=== PATIENT | male | born 1935 | race Caucasian/White ===

== ENCOUNTER 2018-01-27 04:10 | Inpatient (IN) | payer MEDICARE ==
[~2018-01-27] VITALS: Ht 162.6 cm; Wt 65.8 kg
--- NOTE | 2018-01-27 04:27 | Emergency Room Report ---
History of Present Illness General Chief Complaint: Dyspnea/Respdistress Source: EMS Present Illness HPI Is an 82-year-old male brought in by EMS with chief point short of breath. He has multiple problems including lymphoma in remission. He has high blood pressure, diabetes, COPD/CHF. He presents with 1 day history of increasing short of breath and woke up about an hour ago so he can't breathe. He has his to call 911. Per EMS he was very tight and wheezing. He was tripoding. They gave him 25 mg albuterol treatment on route. He felt better now. No fever or chills. Increasing cough. Cough is nonproductive in nature. He is wheezing. Allergies: Coded Allergies: DIPHENHYDRAMINE (Verified Allergy, Unknown, 01/27/18) Patient History Past Medical History: see triage record, old chart reviewed, HTN, [place], CAD, asthma, COPD Past Surgical History: other Pertinent Family History: none Social History: Denies: smoking Immunizations: other Reviewed Nursing Documentation: PMH: Agreed; PSxH: Agreed Nursing Documentation-PMH Hx Hypertension: Yes Hx COPD: Yes - EMPHYSEMA Hx Cancer: Yes - LUNG Review of Systems Eye: Denies: eye pain, blurred vision ENT: Denies: ear pain, nose congestion, throat swelling Respiratory: Reports: cough, shortness of breath, wheezing Cardiovascular: Denies: chest pain, palpitations Gastrointestinal: Denies: abdominal pain, diarrhea, nausea, vomiting Musculoskeletal: Denies: back pain, joint pain Skin: Denies: rash Neurological: Denies: headache, numbness Endocrine: Denies: increased thirst, increased urine Hematologic/Lymphatic: Denies: easy bruising All Other Systems: negative except mentioned in HPI Physical Exam Vital Signs Date Time Temp Pulse Resp B/P (MAP) Pulse Ox O2 Delivery O2 Flow Rate FiO2 01/27/18 04:17 96.9 58 27 185/72 94 Room Air 97.0 vitals with high blood pressure Sp02 EP Interpretation: reviewed, normal General Appearance: well appearing, alert, moderate distress, Chronically Ill Head: normocephalic, atraumatic Eyes: bilateral eye PERRL, bilateral eye EOMI ENT: hearing grossly normal, normal pharynx Neck: full range of motion, supple, no meningismus Respiratory: chest non-tender, respiratory distress, decreased breath sounds, accessory muscle use, wheezing Cardiovascular #1: regular rate, rhythm, no murmur Gastrointestinal: normal bowel sounds, non tender, no mass, no organomegaly, no bruit, non-distended Musculoskeletal: back normal, normal range of motion Neurologic: alert, oriented x3 Psychiatric: mood/affect normal Skin: warm/dry Medical Decision Making Diagnostic Impression: Primary Impression: COPD with exacerbation Additional Impression: Hypertension Qualified Codes: I10 - Essential (primary) hypertension ER Course Patient presents with respiratory distress secondary to COPD exacerbation. After several rounds of treatment and steroid, he is feeling better. No evidence of ACS, PE, dissection to name a few. No evidence of pneumonia. Patient is stable for transfer. Family consistent on being transfer to [facility]. Unfortunately there is no beds at [facility]. They have 40 pts waiting for beds in Telemetry. I discussed case with Dr. Arlen Schmid who is covering for Dr. Elizondo. Pt will be admitted here under Dr. Poole. Laboratory Tests Test 01/27/18 04:50 White Blood Count 10.2 K/UL (4.8-10.8) Red Blood Count 5.53 M/UL (4.70-6.10) Hemoglobin 14.8 G/DL (14.2-18.0) Hematocrit 46.2 % (42.0-52.0) Mean Corpuscular Volume 84 FL (80-99) Mean Corpuscular Hemoglobin 26.8 PG (27.0-31.0) L Mean Corpuscular Hemoglobin Concent 32.1 G/DL (32.0-36.0) Red Cell Distribution Width 14.7 % (11.6-14.8) Platelet Count 137 K/UL (150-450) L Mean Platelet Volume 12.7 FL (6.5-10.1) H Neutrophils (%) (Auto) 75.0 % (45.0-75.0) Lymphocytes (%) (Auto) 15.6 % (20.0-45.0) L Monocytes (%) (Auto) 7.7 % (1.0-10.0) Eosinophils (%) (Auto) 1.0 % (0.0-3.0) Basophils (%) (Auto) 0.8 % (0.0-2.0) Sodium Level 141 MMOL/L (136-145) Potassium Level 5.4 MMOL/L (3.5-5.1) H Chloride Level 108 MMOL/L (98-107) H Carbon Dioxide Level 26 MMOL/L (21-32) Anion Gap 7 mmol/L (5-15) Blood Urea Nitrogen 13 mg/dL (7-18) Creatinine 0.9 MG/DL (0.55-1.30) Estimat Glomerular Filtration Rate mL/min (>60) Glucose Level 106 MG/DL (74-106) Calcium Level 8.5 MG/DL (8.5-10.1) Total Bilirubin 1.0 MG/DL (0.2-1.0) Aspartate Amino Transf (AST/SGOT) 45 U/L (15-37) H Alanine Aminotransferase (ALT/SGPT) 24 U/L (12-78) Alkaline Phosphatase 51 U/L (46-116) Total Creatine Kinase 120 U/L (26-308) Creatine Kinase MB 0.8 NG/ML (0.0-3.6) Creatine Kinase MB Relative Index 0.6 Troponin I 0.000 ng/mL (0.000-0.056) Pro-B-Type Natriuretic Peptide 221 pg/mL (0-125) H Total Protein 7.0 G/DL (6.4-8.2) Albumin 3.2 G/DL (3.4-5.0) L Globulin 3.8 g/dL Albumin/Globulin Ratio 0.8 (1.0-2.7) L Lab Results Impression labs unremarkable EKG Diagnostic Results Rate: normal Rhythm: NSR ST Segments: no acute changes Rhythm Strip Diag. Results Rhythm Strip Time: 06:23 EP Interpretation: yes Rate: 60 Rhythm: NSR, no PVC's, no ectopy Chest X-Ray Diagnostic Results Chest X-Ray Diagnostic Results : Chest X-Ray Ordered: Yes # of Views/Limited/Complete: 1 View Indication: Shortness of Breath EP Interpretation: Yes Interpretation: no consolidation, no effusion, no pneumothorax, no acute cardiopulmonary disease Impression: No acute disease Electronically Signed by: Sarbjit Maher MD Last Vital Signs Date Time Temp Pulse Resp B/P (MAP) Pulse Ox O2 Delivery O2 Flow Rate FiO2 01/27/18 04:17 96.9 58 27 185/72 94 Room Air 97.0 Status: improved Disposition: ADMITTED INPATIENT Condition: Serious SARBJIT MAHER M.D. Jan 27, 2018 04:27
[2018-01-27] MEDS ORDERED: Albuterol ud Inhalation HHN ONE (04:30)
[2018-01-27] MEDS ORDERED: Solu-MEDROL 125mg Inj IVP ONE (04:30)
[2018-01-27] MEDS ORDERED: Ipratropium 0.02% Inh Soln 2.5ml UD HHN ONE (04:30)
[2018-01-27 04:55] LABS: BASOPHILS % (AUTO) 0.8 % (0.0-2.0); HEMATOCRIT 46.2 % (42.0-52.0); HEMOGLOBIN 14.8 G/DL (14.2-18.0); LYMPHOCYTES % (AUTO) 15.6 % (20.0-45.0); MEAN CORPUSCULAR VOLUME 84 FL (80-99); MONOCYTES % (AUTO) 7.7 % (1.0-10.0); PLATELET COUNT 137 K/UL (150-450); RED BLOOD COUNT 5.53 M/UL (4.70-6.10); RED CELL DISTRIBUTION WIDTH 14.7 % (11.6-14.8); WHITE BLOOD COUNT 10.2 K/UL (4.8-10.8)
[2018-01-27 05:22] LABS: ANION GAP 7 mmol/L (5-15); BLOOD UREA NITROGEN 13 mg/dL (7-18); CALCIUM 8.5 MG/DL (8.5-10.1); CARBON DIOXIDE 26 MMOL/L (21-32); CHLORIDE 108 MMOL/L (98-107); CREATININE 0.9 MG/DL (0.55-1.30); SODIUM 141 MMOL/L (136-145)
[2018-01-27 05:34] LABS: ALANINE AMINOTRANSFERASE 24 U/L (12-78); ALBUMIN 3.2 G/DL (3.4-5.0); ALBUMIN/GLOBULIN RATIO 0.8 (1.0-2.7); ALKALINE PHOSPHATASE 51 U/L (46-116); ASPARTATE AMINO TRANSFERASE 45 U/L (15-37); CKMB 0.8 NG/ML (0.0-3.6); CREATINE KINASE 120 U/L (26-308)
[2018-01-27 07:15] VITALS: BP 120/42
[2018-01-27 08:10] VITALS: BP 120/56
[2018-01-27] MEDS ORDERED: unknown meds (09:13)
[2018-01-27] MEDS ORDERED: Solu-MEDROL 40mg Inj IVP SCH (11:00)
[2018-01-27 12:00] VITALS: BP 131/66
[2018-01-27] MEDS: Albuterol/Ipratropium 3ml neb HHN SCH ×4 (12:13→22:56)
--- NOTE | 2018-01-27 14:38 | Diagnostic Imaging Report ---
Indication: Shortness of breath Technique: One view of the chest Comparison: 09/02/2005 Findings: The heart is borderline enlarged. There is mild chronic appearing interstitial prominence, likely on the basis of senescent change, and central bronchial wall thickening. No focal airspace consolidation. Pleural spaces are clear Impression: Mild interstitial prominence, suspect chronic on the basis of senescent changes Borderline cardiomegaly No definite acute process
[2018-01-27 16:00] VITALS: BP 134/87
--- NOTE | 2018-01-27 16:24 | History & Physical ---
History and Physical History & Physicial H & P dict Chandra Poole MD Jan 27, 2018 16:24
[2018-01-27] MEDS ORDERED: TAMSULOSIN HCL0.4 MG ORAL (16:50)
[2018-01-27] MEDS ORDERED: PRAVACHOL40 MG ORAL (16:50)
[2018-01-27] MEDS ORDERED: ZANTAC150 MG ORAL (16:50)
[2018-01-27] MEDS ORDERED: COREG25 MG ORAL (16:50)
[2018-01-27] MEDS ORDERED: HYDRALAZINE HCL50 MG ORAL (16:50)
[2018-01-27] MEDS ORDERED: PLAVIX75 MG ORAL (16:50)
[2018-01-27] MEDS ORDERED: PROTONIX40 MG ORAL (16:50)
[2018-01-27] MEDS ORDERED: ADVAIR 250-501 EACH INH (16:50)
[2018-01-27] MEDS ORDERED: IMBRUVICA140 MG PO (16:50)
[2018-01-27] MEDS ORDERED: LINZESS145 MCG PO (16:50)
--- NOTE | 2018-01-27 17:15 | History and Physical Report ---
DATE OF ADMISSION: 01/27/2018 CHIEF COMPLAINT: Short of breath. HISTORY OF PRESENT ILLNESS: The patient was brought to the hospital emergency department by paramedics because of one day of shortness of breath. He was severely short of breath with wheezing and poor air flow. He has cough, but no sputum production. He had no fever or chills. He was seen in the emergency department and found to have chronic obstructive pulmonary disease exacerbation. He was given respiratory treatments and steroids and improved. Now, he is feeling comfortable and is anxious to go home only a few hours later. PAST MEDICAL HISTORY: The patient is a heavy smoker all his life and continues to smoke up until about one or two days ago. He says that he has cut down. He has had chronic obstructive pulmonary disease and has a history of congestive heart failure as well as lymphoma in remission. He has prostate hypertrophy as well and has coronary disease and hypertension. MEDICATIONS: Reviewed and reconciled. ALLERGY: Diphenhydramine. REVIEW OF SYSTEMS: Otherwise unremarkable. SOCIAL HISTORY: He smokes as noted above. He does not drink excessively or use drugs. He lives at home with his . PHYSICAL EXAMINATION: GENERAL: The patient is alert and responds appropriately. VITAL SIGNS: Show heart rate is 50 to 60. Saturation is normal on 2 liters of oxygen. There is no fever. When he arrived, his blood pressure was markedly elevated, but it has come down to normal. SKIN: Warm and dry with some petechiae on the right arm. HEENT: The head is normocephalic. NECK: No jugular venous distention. No lymphadenopathy. CHEST: Decreased air entry with diminished breath sounds and prolonged expiratory phase, but no wheezing. CARDIAC: Rhythm is regular. Heart tones are distant. ABDOMEN: Soft and nontender. Liver and spleen not felt. EXTREMITIES: No clubbing, cyanosis, or edema. IMAGING: Chest x-ray shows no acute changes. LABORATORY DATA: Laboratory tests show potassium 5.4, otherwise unremarkable chemistry. Natriuretic peptide is slightly elevated at 221 with normal less than 125. Albumin is 3.2. Hemoglobin is 14.8, platelets are low at 137,000, and white count is 10,200. IMPRESSION: 1. Chronic obstructive pulmonary disease exacerbation. 2. Lymphoma, in remission. 3. History of congestive heart failure, inactive. 4. Hypertension, controlled. PLAN: The patient's home medications will be continued. He will be given respiratory treatments and steroids. I do not believe antibiotics are indicated at this time. Early discharge is anticipated. He was advised never to smoke again. Chandra Poole M.D. DR: MAYNOR JOB#: [id number] CC: Chandra Poole M.D.; Fax#: [phone]
[2018-01-27] MEDS: Advair 250/50 Inhaler - 14 dose INH SCH (19:07)
[2018-01-27 20:00] VITALS: BP 152/77
[2018-01-27] MEDS: Carvedilol 25mg Tab ORAL SCH (20:54)
[2018-01-27] MEDS: HydrALAZINE 50mg tab ORAL SCH (20:54)
[2018-01-27] MEDS ORDERED: Tamsulosin 0.4mg cap ORAL SCH (21:00)
[2018-01-27] MEDS: Solu-MEDROL 40mg Inj IVP SCH (22:00)
[2018-01-28] VITALS: BP 150/79
[2018-01-28] MEDS: Albuterol/Ipratropium 3ml neb HHN SCH ×5 (02:47→22:52)
[2018-01-28 04:00] VITALS: BP 121/55
[2018-01-28] MEDS: Solu-MEDROL 40mg Inj IVP SCH ×3 (05:47→21:59)
[2018-01-28 06:09] LABS: BASOPHILS % (AUTO) 0.3 % (0.0-2.0); HEMATOCRIT 40.4 % (42.0-52.0); HEMOGLOBIN 12.9 G/DL (14.2-18.0); LYMPHOCYTES % (AUTO) 8.5 % (20.0-45.0); MEAN CORPUSCULAR VOLUME 84 FL (80-99); NEUTROPHILS % (AUTO) 84.2 % (45.0-75.0); PLATELET COUNT 126 K/UL (150-450); RED BLOOD COUNT 4.83 M/UL (4.70-6.10); RED CELL DISTRIBUTION WIDTH 14.4 % (11.6-14.8); WHITE BLOOD COUNT 15.9 K/UL (4.8-10.8)
[2018-01-28 06:53] LABS: ALANINE AMINOTRANSFERASE 12 U/L (12-78); ALBUMIN/GLOBULIN RATIO 0.9 (1.0-2.7); ALKALINE PHOSPHATASE 49 U/L (46-116); ANION GAP 10 mmol/L (5-15); ASPARTATE AMINO TRANSFERASE 12 U/L (15-37); BILIRUBIN,TOTAL 0.5 MG/DL (0.2-1.0); BLOOD UREA NITROGEN 21 mg/dL (7-18); CALCIUM 8.7 MG/DL (8.5-10.1); CARBON DIOXIDE 23 MMOL/L (21-32); CHLORIDE 108 MMOL/L (98-107); CHOLESTEROL 151 MG/DL (< 200); HDL CHOLESTEROL 44 MG/DL (40-60); LACTATE DEHYDROGENASE 155 U/L (81-234); POTASSIUM 3.6 MMOL/L (3.5-5.1); SODIUM 141 MMOL/L (136-145); TRIGLYCERIDES 43 MG/DL (30-150)
[2018-01-28 08:00] VITALS: BP 130/73
[2018-01-28] MEDS ORDERED: PREDNISONE20 MG ORAL (08:42)
[2018-01-28] MEDS: Carvedilol 25mg Tab ORAL SCH ×2 (08:51→21:49)
[2018-01-28] MEDS: HydrALAZINE 50mg tab ORAL SCH ×2 (08:52→21:50)
[2018-01-28 12:00] VITALS: BP 146/64
[2018-01-28] MEDS: Advair 250/50 Inhaler - 14 dose INH SCH (12:05)
[2018-01-28 12:35] LABS: POTASSIUM 5.4 MMOL/L (3.5-5.1)
--- NOTE | 2018-01-28 12:59 | Pulmonology Progress Note ---
Assessment/Plan Assessment/Plan 1. Chronic obstructive pulmonary disease exacerbation. 2. Lymphoma, in remission. 3. History of congestive heart failure, inactive. 4. Hypertension, controlled. improved, wants to go home wants him to stay another day possible dc tomorrow Subjective Constitutional: Reports: no symptoms Respiratory: Denies: shortness of breath Allergies: Coded Allergies: DIPHENHYDRAMINE (Verified Allergy, Unknown, 01/27/18) Objective Last 24 Hour Vital Signs Date Time Temp Pulse Resp B/P (MAP) Pulse Ox O2 Delivery O2 Flow Rate FiO2 01/28/18 12:00 65 01/28/18 12:00 97.6 66 18 146/64 96 Room Air 97.6 01/28/18 08:52 130/73 01/28/18 08:51 66 130/73 01/28/18 08:00 97.8 66 18 130/73 96 Room Air 97.8 01/28/18 08:00 72 01/28/18 07:42 67 18 99 Nasal Cannula 2.0 28 01/28/18 07:35 64 18 98 Nasal Cannula 2.0 28 01/28/18 07:35 98 Nasal Cannula 2.0 28 01/28/18 07:35 Nasal Cannula 2.0 28 01/28/18 04:00 70 01/28/18 04:00 97.5 74 20 121/55 96 Room Air 97.5 01/28/18 02:49 Nasal Cannula 01/28/18 02:47 58 16 94 01/28/18 00:00 97.0 74 22 150/79 92 Room Air 97.0 01/27/18 23:08 58 16 97 Nasal Cannula 2.0 28 01/27/18 22:57 62 18 94 Nasal Cannula 2.0 28 01/27/18 20:54 152/77 01/27/18 20:54 56 152/77 01/27/18 20:00 97.0 56 22 152/77 97 Room Air 97.0 01/27/18 20:00 56 01/27/18 19:24 56 18 97 Nasal Cannula 2.0 28 01/27/18 19:11 Nasal Cannula 2.0 28 01/27/18 19:11 95 Nasal Cannula 2.0 28 01/27/18 19:10 54 20 95 Nasal Cannula 2.0 28 01/27/18 16:00 97.0 58 20 134/87 97 Room Air 97.0 01/27/18 16:00 58 01/27/18 15:07 53 20 98 Nasal Cannula 2.0 28 01/27/18 14:59 51 20 97 Nasal Cannula 2.0 28 Intake and Output 01/27/18 01/28/18 19:00 07:00 Intake Total 480 ml Output Total 200 ml Balance 480 ml -200 ml Intake Oral 480 ml Output Urine Total 200 ml # Voids 3 General Appearance: no acute distress Respiratory/Chest: lungs clear, decreased breath sounds Cardiovascular: normal rate Laboratory Tests 01/28/18 05:45: White Blood Count 15.9#H, Red Blood Count 4.83, Hemoglobin 12.9L, Hematocrit 40.4L, Mean Corpuscular Volume 84, Mean Corpuscular Hemoglobin 26.8L, Mean Corpuscular Hemoglobin Concent 32.0, Red Cell Distribution Width 14.4, Platelet Count 126L, Mean Platelet Volume 9.7, Neutrophils (%) (Auto) 84.2H, Lymphocytes (%) (Auto) 8.5L, Monocytes (%) (Auto) 7.0, Eosinophils (%) (Auto) 0.0, Basophils (%) (Auto) 0.3, Sodium Level 141, Potassium Level 3.6, Chloride Level 108H, Carbon Dioxide Level 23, Anion Gap 10, Blood Urea Nitrogen 21H, Creatinine 1.0, Estimat Glomerular Filtration Rate , Glucose Level 138H, Calcium Level 8.7, Total Bilirubin 0.5, Aspartate Amino Transf (AST/SGOT) 12L, Alanine Aminotransferase (ALT/SGPT) 12, Alkaline Phosphatase 49, Lactate Dehydrogenase 155, Pro-B-Type Natriuretic Peptide 518H, Total Protein 6.5, Albumin 3.0L, Globulin 3.5, Albumin/Globulin Ratio 0.9L, Triglycerides Level 43 , Cholesterol Level 151, LDL Cholesterol 99, HDL Cholesterol 44, Cholesterol/ HDL Ratio 3.4, Prostate Specific Antigen 1.05, Thyroid Stimulating Hormone (TSH ) 1.162 Current Medications Medications (Trade) Dose Ordered Sig/Zachary Route PRN Reason Start Time Stop Time Status Last Admin Dose Admin Albuterol/ Ipratropium (Albuterol/ Ipratropium) 3 ml Q4HRT HHN 01/27/18 11:00 02/01/18 10:59 01/28/18 12:05 Carvedilol (Coreg) 25 mg EVERY 12 HOURS ORAL 01/27/18 21:00 02/26/18 20:59 01/28/18 08:51 Clopidogrel Bisulfate (Plavix) 75 mg DAILY ORAL 01/28/18 09:00 02/27/18 08:59 01/28/18 08:52 Famotidine (Pepcid) 20 mg BID ORAL 01/27/18 18:00 02/26/18 17:59 01/28/18 08:51 Hydralazine HCl (Apresoline) 50 mg EVERY 12 HOURS ORAL 01/27/18 21:00 02/26/18 20:59 01/28/18 08:52 Methylprednisolone Sodium Succinate (Solu-MEDROL) 40 mg EVERY 8 HOURS IVP 01/27/18 22:00 02/26/18 21:59 01/28/18 05:47 Nicotine (Nicoderm) 1 patch Q24H TDERMAL 01/28/18 12:30 02/27/18 12:29 UNV Non-Formulary Medication (Non-Formulary Med) 1 ea DAILY ORAL 01/27/18 16:30 02/26/18 16:29 UNV Non-Formulary Medication (Non-Formulary Med) 1 ea DAILY ORAL 01/27/18 16:30 02/26/18 16:29 UNV Pantoprazole (Protonix) 40 mg EVERY 12 HOURS ORAL 01/27/18 21:00 02/26/18 20:59 01/28/18 08:51 Pravastatin Sodium (Pravachol) 40 mg BEDTIME ORAL 01/27/18 21:00 02/26/18 20:59 01/27/18 20:53 Salmeterol Xinafoate/ Fluticasone (Advair 250/50 Diskus) 1 puffs BID INH 01/27/18 18:00 02/26/18 17:59 01/28/18 12:05 Tamsulosin HCl (Flomax) 0.4 mg BEDTIME ORAL 01/27/18 21:00 02/26/18 20:59 01/27/18 20:53 Chandra Poole MD Jan 28, 2018 12:59
[2018-01-28 16:00] VITALS: BP 136/60
[2018-01-28] MEDS ORDERED: Advair 250/50 Inhaler - 14 dose INH SCH ×2 (18:00→22:00)
[2018-01-28 20:00] VITALS: BP 152/68
[2018-01-28] MEDS ORDERED: Tamsulosin 0.4mg cap ORAL SCH (21:00)
[2018-01-29] VITALS: BP 140/62
[2018-01-29 00:02] VITALS: BP 140/62
[2018-01-29] MEDS: Albuterol/Ipratropium 3ml neb HHN SCH ×3 (03:55→11:59)
[2018-01-29 04:00] VITALS: BP 137/68
[2018-01-29] MEDS: Solu-MEDROL 40mg Inj IVP SCH (05:49)
[2018-01-29] MEDS: HydrALAZINE 50mg tab ORAL SCH (08:25)
[2018-01-29] MEDS: Carvedilol 25mg Tab ORAL SCH (08:25)
[2018-01-29 08:43] VITALS: BP 184/92
[2018-01-29 09:43] VITALS: BP 155/73
--- NOTE | 2018-01-29 10:14 | Pulmonology Progress Note ---
Assessment/Plan Assessment/Plan 1. Chronic obstructive pulmonary disease exacerbation. 2. Lymphoma, in remission. 3. History of congestive heart failure, inactive. 4. Hypertension, controlled. improved, wants to go home dc home rx for prednisone taper fu wi pcp 1 week Subjective Constitutional: Reports: no symptoms HEENT: Repors: no symptoms Respiratory: Reports: no symptoms Genitourinary: Reports: no symptoms Allergies: Coded Allergies: DIPHENHYDRAMINE (Verified Allergy, Unknown, 01/27/18) Subjective DOING well on ra no distress no wheezing no cp nv or bleeding Objective Last 24 Hour Vital Signs Date Time Temp Pulse Resp B/P (MAP) Pulse Ox O2 Delivery O2 Flow Rate FiO2 01/29/18 09:43 97.3 70 18 155/73 96 Room Air 97.3 01/29/18 08:43 97.2 63 18 184/92 96 Room Air 97.2 01/29/18 08:36 72 20 99 Room Air 01/29/18 08:28 Room Air 01/29/18 08:28 99 Room Air 01/29/18 08:28 67 18 99 Room Air 01/29/18 08:25 184/92 01/29/18 08:25 63 184/92 01/29/18 04:01 59 20 99 Room Air 01/29/18 04:00 98.0 67 20 137/68 97 Room Air 98.0 01/29/18 03:56 66 16 94 Room Air 01/29/18 00:02 97.2 66 20 140/62 96 Room Air 97.2 01/28/18 22:58 72 20 99 Room Air 01/28/18 22:53 71 16 95 Room Air 01/28/18 21:50 152/68 01/28/18 21:49 61 152/68 01/28/18 20:04 61 20 98 Room Air 01/28/18 20:03 Room Air 01/28/18 20:03 98 Nasal Cannula 2.0 28 01/28/18 20:03 61 18 98 01/28/18 20:00 98.4 61 20 152/68 96 Room Air 98.4 01/28/18 16:00 97.1 58 20 136/60 94 Room Air 97.1 01/28/18 14:37 72 20 98 Nasal Cannula 2.0 28 01/28/18 14:30 60 18 97 Nasal Cannula 2.0 28 01/28/18 12:00 65 01/28/18 12:00 97.6 66 18 146/64 96 Room Air 97.6 01/28/18 11:36 69 18 97 Nasal Cannula 2.0 28 01/28/18 11:29 67 18 97 Nasal Cannula 2.0 28 Intake and Output 01/28/18 01/29/18 19:00 07:00 Intake Total 1660 ml Output Total 950 ml Balance 710 ml Intake Oral 1660 ml Output Urine Total 950 ml # Voids 2 8 General Appearance: WD/WN Respiratory/Chest: lungs clear, no respiratory distress Cardiovascular: normal rate, regular rhythm Abdomen: normal bowel sounds, no organomegaly Neurologic/Psychiatric: contact center assistant II-XII grossly normal, abnormal gait, oriented x 3 Current Medications Medications (Trade) Dose Ordered Sig/Zachary Route PRN Reason Start Time Stop Time Status Last Admin Dose Admin Albuterol/ Ipratropium (Albuterol/ Ipratropium) 3 ml Q4HRT HHN 01/28/18 19:00 02/01/18 10:59 01/29/18 09:01 Carvedilol (Coreg) 25 mg EVERY 12 HOURS ORAL 01/28/18 21:00 02/26/18 20:59 01/29/18 08:25 Clopidogrel Bisulfate (Plavix) 75 mg DAILY ORAL 01/29/18 09:00 02/27/18 08:59 01/29/18 08:24 Famotidine (Pepcid) 20 mg BID ORAL 01/28/18 18:00 02/26/18 17:59 01/29/18 08:24 Hydralazine HCl (Apresoline) 50 mg EVERY 12 HOURS ORAL 01/28/18 21:00 02/26/18 20:59 01/29/18 08:25 Methylprednisolone Sodium Succinate (Solu-MEDROL) 40 mg EVERY 8 HOURS IVP 01/28/18 22:00 02/26/18 21:59 01/29/18 05:49 Nicotine (Nicoderm) 1 patch Q24H TDERMAL 01/28/18 16:00 02/27/18 15:59 01/28/18 16:10 Non-Formulary Medication (Non-Formulary Med) 1 ea DAILY ORAL 01/29/18 09:00 02/26/18 16:29 UNV Non-Formulary Medication (Non-Formulary Med) 1 ea DAILY ORAL 01/29/18 09:00 02/26/18 16:29 UNV Pantoprazole (Protonix) 40 mg EVERY 12 HOURS ORAL 01/28/18 21:00 02/26/18 20:59 01/29/18 08:25 Pravastatin Sodium (Pravachol) 40 mg BEDTIME ORAL 01/28/18 21:00 02/26/18 20:59 01/28/18 21:49 Salmeterol Xinafoate/ Fluticasone (Advair 250/50 Diskus) 1 puffs BIDRT INH 01/28/18 22:00 02/26/18 17:59 01/28/18 19:59 Tamsulosin HCl (Flomax) 0.4 mg BEDTIME ORAL 01/28/18 21:00 02/26/18 20:59 01/28/18 22:04 Kelly Person 16, 2018 10:14
--- NOTE | 2018-01-29 11:44 | Cardiology Report ---
APPROVED REPORT EXAM: Two-dimensional and M-mode echocardiogram with Doppler and color Doppler. INDICATION Congestive Heart Failure M-Mode DIMENSIONS IVSd1.4 (0.7-1.1cm)Left Atrium (MM)4.0 (1.6-4.0cm) LVDd4.2 (3.5-5.6cm)Aortic Root3.1 (2.0-3.7cm) PWd1.3 (0.7-1.1cm)Aortic Cusp Exc.1.6 (1.5-2.0cm) LVDs2.0 (2.5-4.0cm) PWs1.7 cm Normal left ventricular chamber size, systolic function and wall motion. Left ventricular ejection fraction estimated to be 60 %. Mild left ventricular hypertrophy. No evidence of pericardial effusion. All other cardiac chamber sizes are within normal limits. Moderate focal aortic valve sclerosis with reduced cusp excursion. Mildly thickened mitral valve leaflets with normal excursion. Mild mitral annulus and aortic root calcification. Pulmonic valve not visualized. Normal tricuspid valve structure. IVC is normal in size without physiological collapse, suggestive of increased RA pressure. A color flow and spectral Doppler study was performed and revealed: No aortic insufficiency. Peak aortic valve gradient of 23 mmHg and a mean of 13 mmHg. Aortic valve area 1.7 cm2 calculated by continuity equation. No mitral regurgitation. Mitral diastolic velocities suggest mild left ventricular diastolic dysfunction (Grade I). Mild tricuspid regurgitation. Tricuspid systolic velocities suggests peak right ventricular systolic pressure of 36 mmHg, consistent with mild pulmonary hypertension.
--- NOTE | 2018-01-29 12:18 | Cardiology Report ---
APPROVED REPORT EKG Measurement Heart [id number] Sinus bradycardia with 1st degree AV block T wave abnormality, consider lateral ischemia Abnormal ECG
--- NOTE | 2018-01-31 09:34 | Discharge Summary ---
Discharge Summary Discharge Summary _ DATE OF ADMISSION: 01/27/2018 DATE OF DISCHARGE: 01/29/2018 REASON FOR ADMISSION: 82 years old male with past medical history significant for COPD ,heavy smoker, lymphoma in remission, congestive heart failure ,hypertension ,prostate hypertrophy, presented to emergency department with one-day shortness of breath. Patient reported to be severely short of breath and wheezing with poor air flow. He had cough without sputum production. He denied fever and chills. Chest x-ray revealed mild interstitial prominence , suspected chronic, borderline cardiomegaly, but no definite acute process. Troponin was negative. EKG revealed sinus bradycardia with heart rate of 59 with first-degree AV block. Pro BNP 221. No leukocytosis. In ED patient was given loading dose of steroids and nebulizing treatment with bronchodilator with some improvement. Patient admitted with diagnosis of COPD exacerbation ,history of CHF, hypertension, lymphoma( in remission). HOSPITAL COURSE: Patient was admitted to the hospital. Patient started on IV steroids with gradual diapering. Supplemental oxygen provided as needed to keep pulse oximetry above 92%. Pulmonary toilet with bronchodilators provided as needed. Patient was resumed on Advair inhaler. No antibiotics were warranted at this time Patient was counseled n abstinence from smoking. Patient was started on nicotine patch. Lipid panel was stable with LDL 99 statin was continued. Echocardiogram revealed preserved ejection fraction of 60%, moderate aortic valve sclerosis with reduced cost excursion. Mild left ventricular hypertrophy , no evidence of pericardial effusion ,right ventricular systolic pressure of 36 consistent with a mild pulmonary hypertension. Patient was continued with antiplatelet therapy with Plavix. Blood pressure was managed with a beta julita and hydralazine. GI prophylaxis provided. Flomax continued. Patient clinically improved and was stable for discharge home on oral steroids with tapering. FINAL DIAGNOSES: COPD exacerbation Lymphoma ( in remission) History of congestive heart failure Heavy smoker Hypertension DISCHARGE MEDICATIONS: See Medication Reconciliation list. DISCHARGE INSTRUCTIONS: Patient was discharged home. Patient to follow-up with the primary care provider in one week. I have been assigned to dictate discharge summary for this account. I was not involved in the patient's management. Dinah Black NP Jan 31, 2018 09:34
== END 2018-01-29 12:19 | disposition home or self-care (01) | DRG 192 ==
LOC: EDBD 04:10 → EMR 04:25 → 2E 05:37 → EDBEDREQ 06:50 → 3E 01-28 15:26
DX: J44.1 Chronic obstructive pulmonary disease with (acute) exacerbation (principal); Z85.72 Personal history of non-Hodgkin lymphomas; F17.200 Nicotine dependence, unspecified, uncomplicated; N40.0 Benign prostatic hyperplasia without lower urinary tract symptoms; Z88.8 Allergy status to other drugs, medicaments and biological substances; Z86.79 Personal history of other diseases of the circulatory system; I10 Essential (primary) hypertension
CPT/HCPCS: 36415; 71045; 80053; 80061; 81003; 82550; 82553; 83615; 83880; 84153; 84443; 84484; 85025; 93005; 93306; 94640; 94664; 94760; 99284; J7620